=== PATIENT | male | born 1980 | race Caucasian/White ===

== ENCOUNTER 2024-09-04 15:07 | Emergency (ER) | payer OTHER ==
[~2024-09-04] VITALS: Ht 182.9 cm; Wt 108.9 kg
[2024-09-04 15:28] VITALS: BP_SYST 154; BP_SYST 158; BP_DIAS 98; PULSE 97; RESP 18; TEMP 98; TEMP 98.5; O2SAT 98
[2024-09-04 16:30] VITALS: BP 158/98; PULSE 97; RESP 18; O2SAT 98
== END 2024-09-04 16:34 | disposition home or self-care (01) ==
LOC: ER 15:07
DX: S06.0X0A Concussion without loss of consciousness, initial encounter (principal); W18.39XA Other fall on same level, initial encounter; Y93.89 Activity, other specified; Y92.89 Other specified places as the place of occurrence of the external cause; Y99.8 Other external cause status
CPT/HCPCS: 70450; 99284